=== PATIENT | male | born 1980 | race Caucasian/White ===

== ENCOUNTER 2018-03-14 12:07 | Emergency (ER) | payer SELFPAY ==
[2018-03-14 12:15] VITALS: BP 127/91; PULSE 100; TEMP 98.4; BMI 24.7
[2018-03-14] MEDS ORDERED: ONDANSETRON 4 MG/2 ML VIAL IVPUSH ONE (13:07)
[2018-03-14] MEDS ORDERED: SODIUM CHLORIDE 1,000 ML IV STA ×2 (13:07→15:21)
[2018-03-14] MEDS ORDERED: PANTOPRAZOLE SODIUM 40 MG in SODIUM CHLORIDE 100 ML IVPB ONE (13:07)
[2018-03-14] MEDS ORDERED: ONDANSETRON 4 MG/2 ML VIAL ONE (13:33)
--- NOTE | 2018-03-14 13:36 | PDOC ---
*Physical Exam - Vital Signs Last Vital Signs Temp Pulse Resp BP Pulse Ox 98.4 F 100 H 20 127/91 99 03/14/18 12:13 03/14/18 12:13 03/14/18 12:13 03/14/18 12:13 03/14/18 12:13 ED Treatment Course - LABORATORY CBC & Chemistry Diagram: 03/14/18 14:30 03/14/18 14:30 Medical Decision Making - Medical Decision Making 03/14/18 13:36 Mr Alves is a 37 yo M p/w epigastric cramping x 4 days associated with n/v x 5 days. Pt denies urinary complaints, fever, chills, weakness, diarrhea, vomiting blood , cough, chest pain, or headache. Pt seen by Midlevel Provider under my direct supervision Pt interviewed and examined Ancillary studies reviewed Laboratory Tests 03/14/18 03/14/18 03/14/18 14:30 14:30 14:30 WBC 5.4 Hgb 16.3 Hct 48.6 Plt Count 207 BUN 17 Creatinine 0.8 Acetone, Qual Negative I agree with plan as outlined by Midlevel Provider *DC/Admit/Observation/Transfer Diagnosis at time of Disposition: Nausea and vomiting, EtOH dependence - Discharge Dispostion Disposition: HOME Condition at time of disposition: Improved - Referrals Referrals: Walter Doherty MD [Staff Physician] - - Patient Instructions Printed Discharge Instructions: Diabetes, General (Alternative Therapy), DI for Alcohol Abuse Additional Instructions: Please avoid alcohol. Take diabetic medication. Eat small frequent meals and follow up referred physician Print Language: LUXEMBOURGISH - Post Discharge Activity
--- NOTE | 2018-03-14 14:36 | PDOC ---
History of Present Illness - General Chief Complaint: Pain Stated Complaint: ABD PAIN Time Seen by Provider: 03/14/18 12:32 History Source: Patient Exam Limitations: No Limitations - History of Present Illness Travel History: No Initial Comments: 03/14/18 12:31 37 y/o male presents to the ED with epigastric cramping x 4 days associated with n/v x 5 days. pt went to [facility] 2 days ago and was told to stop drinking alcohol and to start his glucophage again. Pt states had no imaging done and was prescribed glucophage which he took yesterday but not today secondary to the n/v. Pt denies urinary complaints, fever, chills, weakness, diarrhea, vomiting blood, cough, chest pain, or headache. Timing/Duration: reports: intermittent Quality: reports: mild, cramping Abdominal Pain Onset Location: reports: epigastric Pain Radiation: reports: no radiation Activities at Onset: reports: none Aggravating Factors: improves with: None Alleviating Factors: improves with: None Past History - Travel Traveled outside of the country in the last 30 days: No - Past Medical History Allergies/Adverse Reactions: Allergies Allergy/AdvReac Type Severity Reaction Status Date / Time No Known Allergies Allergy Verified 03/14/18 12:15 Diabetes: Yes - Suicide/Smoking/Psychosocial Hx Smoking History: Never smoked Information on smoking cessation initiated: No Drug/Substance Use Hx: Yes Substance Use Type: Alcohol Hx Substance Use Treatment: No Patient Lives Alone: No Lives with/in: spouse/SO Review of Systems - Review of Systems Able to Perform ROS?: Yes Constitutional: No: Symptoms Reported HEENTM: No: Symptoms Reported Respiratory: No: Symptoms reported Cardiac (ROS): No: Symptoms Reported ABD/GI: Yes: Nausea, Vomiting, Abdominal cramping. No: Constipated, Diarrhea, Poor Appetite, Poor Fluid Intake Musculoskeletal: No: Back Pain Integumentary: No: Symptoms Reported Neurological: No: Symptoms reported Endocrine: No: Symptoms Reported Hematologic/Lymphatic: No: Symptoms Reported *Physical Exam - Vital Signs Last Vital Signs Temp Pulse Resp BP Pulse Ox 98.4 F 100 H 20 127/91 99 03/14/18 12:13 03/14/18 12:13 03/14/18 12:13 03/14/18 12:13 03/14/18 12:13 - Physical Exam General Appearance: Yes: Nourished, Appropriately Dressed. No: Apparent Distress HEENT: positive: EOMI, REJI, TMs Normal, Pharynx Normal. negative: Pale Conjunctivae Neck: positive: Supple Respiratory/Chest: positive: Lungs Clear, Normal Breath Sounds. negative: Respiratory Distress, Accessory Muscle Use Cardiovascular: positive: Regular Rhythm, Regular Rate. negative: Murmur Gastrointestinal/Abdominal: positive: Soft, Tenderness (epigastric tenderness) Musculoskeletal: negative: CVA Tenderness Extremity: positive: Normal Capillary Refill. negative: Pedal Edema Integumentary: positive: Normal Color, Warm, Moist Neurologic: positive: Normal Mood/Affect, Motor Strength 5/5 (ambulatory) Moderate Sedation - Procedure Monitoring Vital Signs: Procedure Monitoring Vital Signs Temperature 98.4 F 03/14/18 12:13 Pulse Rate 100 H 03/14/18 12:13 Respiratory Rate 20 03/14/18 12:13 Blood Pressure 127/91 03/14/18 12:13 O2 Sat by Pulse Oximetry (%) 99 03/14/18 12:13 ED Treatment Course - LABORATORY CBC & Chemistry Diagram: 03/14/18 14:30 03/14/18 14:30 Medical Decision Making - Medical Decision Making 03/14/18 13:38 CC: n/v, epigastric pain x 4 days, off diabetic medication x 6 months due to no money for medication, took 3 tabs since it was prescribed 2 days ago, pt states drinks 4-5 beers daily. Exam: tachy, epigastric tenderness Plan: labs, urine, acetone, ivf, zofran, protonix, 03/14/18 16:32 Laboratory Tests 03/14/18 03/14/18 03/14/18 14:30 14:30 14:30 WBC 5.4 Hgb 16.3 Hct 48.6 MCV 98.2 H Neutrophils % 46.9 Lymphocytes % 43.7 H Sodium 135 L Potassium 3.7 Chloride 100 Carbon Dioxide 26 Anion Gap 9 BUN 17 Creatinine 0.8 Creat Clearance w eGFR > 60 Random Glucose 217 H Lactic Acid Calcium 9.1 Magnesium 2.3 Total Bilirubin 1.0 AST 108 H ALT 170 H Alkaline Phosphatase 111 Total Protein 8.7 H Albumin 4.3 Lipase Urine Protein 1+ H Urine Glucose (UA) 1+ H Urine Ketones 2+ H Urine Blood Negative Ur Leukocyte Esterase Negative Urine WBC (Auto) 4 Urine RBC (Auto) <1 Acetone, Qual 03/14/18 03/14/18 03/14/18 14:30 14:30 15:46 WBC Hgb Hct MCV Neutrophils % Lymphocytes % Sodium Potassium Chloride Carbon Dioxide Anion Gap BUN Creatinine Creat Clearance w eGFR Random Glucose Lactic Acid 1.0 Calcium Magnesium Total Bilirubin AST ALT Alkaline Phosphatase Total Protein Albumin Lipase 200 Urine Protein Urine Glucose (UA) Urine Ketones Urine Blood Ur Leukocyte Esterase Urine WBC (Auto) Urine RBC (Auto) Acetone, Qual Negative Pt given 2nd liter of fluid. pt states feeling much better and able to tolerate crackers and water *DC/Admit/Observation/Transfer Diagnosis at time of Disposition: Nausea and vomiting, EtOH dependence - Discharge Dispostion Disposition: HOME Condition at time of disposition: Improved - Referrals Referrals: Walter Doherty MD [Staff Physician] - - Patient Instructions Printed Discharge Instructions: Diabetes, General (Alternative Therapy), DI for Alcohol Abuse Additional Instructions: Please avoid alcohol. Take diabetic medication. Eat small frequent meals and follow up referred physician Print Language: MACEDONIAN - Post Discharge Activity
[2018-03-14 14:48] LABS: URINE APPEARANCE CLEAR; URINE BILIRUBIN NEGATIVE (<2.0 mg/dL); URINE COLOR AMBER; URINE GLUCOSE (UA) 1+ (NEGATIVE); URINE KETONE 2+ (NEGATIVE); URINE LEUK ESTERASE NEGATIVE (NEGATIVE); URINE NITRITE NEGATIVE (NEGATIVE); URINE PROTEIN 1+ (NEGATIVE); URINE UROBILINOGEN 4.0 E.U/dl mg/dL (0.2-1.0)
[2018-03-14 15:07] LABS: ALBUMIN 4.3 g/dl (3.4-5.0); ALK PHOS 111 U/L (45-117); ANION GAP 9 MMOL/L (8-16); BLOOD UREA NITROGEN 17 mg/dL (7-18); CALCIUM 9.1 mg/dL (8.5-10.1); CHLORIDE 100 mmol/L (98-107); CO2 26 mmol/L (21-32); CREATININE 0.8 mg/dL (0.55-1.3); GLUCOSE,RANDOM 217 mg/dL (74-106); MAGNESIUM 2.3 mg/dL (1.8-2.4); POTASSIUM 3.7 mmol/L (3.5-5.1); SGOT/AST 108 U/L (15-37); SGPT/ALT 170 U/L (13-61); SODIUM 135 mmol/L (136-145); TOT PROT 8.7 g/dl (6.4-8.2)
[2018-03-14 15:44] LABS: BASO % 0.7 % (0-2.0); EOS % 0.3 % (0-4.5); HEMATOCRIT 48.6 % (35.4-49); HEMOGLOBIN 16.3 GM/dL (11.7-16.9); LYMPH % 43.7 % (8-40); MCH 32.9 pg (25.7-33.7); MCHC 33.6 g/dl (32.0-35.9); MEAN CELL VOLUME 98.2 fl (80-96); MEAN PLT VOLUME 8.3 fl (7.5-11.1); MONO % 8.4 % (3.8-10.2); NEUT % 46.9 % (42.8-82.8); PLATELET COUNT 207 K/MM3 (134-434); RBC 4.95 M/mm3 (4.00-5.60); RDW 13.1 % (11.9-15.9); WHITE BLOOD COUNT 5.4 K/mm3 (4.0-10.0)
[2018-03-14 16:28] LABS: URINE MUCUS MANY
== END 2018-03-14 18:00 | disposition home or self-care (01) ==
LOC: JER 12:07
PROC: 3E0337Z Introduction of Electrolytic and Water Balance Substance into Peripheral Vein, Percutaneous Approach (ICD-10-PCS; principal; 2018-03-14)
PROC: 3E0337Z Introduction of Electrolytic and Water Balance Substance into Peripheral Vein, Percutaneous Approach (ICD-10-PCS; 2018-03-14)
PROC: 3E033GC Introduction of Other Therapeutic Substance into Peripheral Vein, Percutaneous Approach (ICD-10-PCS; 2018-03-14)
PROC: 3E033GC Introduction of Other Therapeutic Substance into Peripheral Vein, Percutaneous Approach (ICD-10-PCS; 2018-03-14)
DX: R11.2 Nausea with vomiting, unspecified (principal); F10.20 Alcohol dependence, uncomplicated
CPT/HCPCS: 36415; 80053; 81003; 81015; 82009; 83605; 83690; 83735; 85025; 87086; 99282-25; J7030

== ENCOUNTER 2018-06-28 19:12 | Emergency (ER) | payer SELFPAY ==
[2018-06-28 19:36] VITALS: BP 120/77; TEMP 99; BMI 24.7
[2018-06-28] MEDS ORDERED: FAMOTIDINE 20 MG/50 ML IVPB 20 MG/50 ML MG IVPB ONE ×2 (19:53→20:02)
[2018-06-28] MEDS ORDERED: SODIUM CHLORIDE 1,000 ML IV STA ×2 (19:53→20:45)
[2018-06-28] MEDS ORDERED: ONDANSETRON 4 MG/2 ML VIAL ONE (20:02)
[2018-06-28] MEDS ORDERED: ONDANSETRON 4 MG/2 ML VIAL IVPB ONE (20:10)
--- NOTE | 2018-06-28 20:15 | PDOC ---
History of Present Illness - General Chief Complaint: Nausea/Vomiting Stated Complaint: ABD PAIN Time Seen by Provider: 06/28/18 19:50 History Source: Patient Exam Limitations: No Limitations - History of Present Illness Initial Comments: 06/28/18 20:11 Pt is a 38yo M with PMH of NIDDM presenting to ED with complaints of epigastric abdominal pain x3 days. Pt states pain feels like a cramping sensation and feels like he is hungry, does not radiate, is constant. Associated with nausea and vomiting when he tries to eat. Pain is worsened when he eats. He had similar symptoms before around 3 months ago. He denies fever, chills, hematemesis, bloody stools, tarry stools, chest pain, sob, recent travel, sick contacts. Last BM was 2 days ago. Is not able to tolerate solids but is able to tolerate liquids. PMD: PMH: see hpi PSH: none Meds: Metformin Allergies: nkda Social: occasional alcohol use Past History - Past Medical History Allergies/Adverse Reactions: Allergies Allergy/AdvReac Type Severity Reaction Status Date / Time No Known Allergies Allergy Verified 06/28/18 19:36 Home Medications: Ambulatory Orders Acetaminophen [Tylenol] 650 mg PO PRN 06/28/18 Ondansetron [Zofran Odt -] 4 mg SL BID #10 od.tablet 06/28/18 COPD: No Diabetes: Yes - Suicide/Smoking/Psychosocial Hx Smoking History: Never smoked Have you smoked in the past 12 months: No Information on smoking cessation initiated: No Hx Alcohol Use: No Drug/Substance Use Hx: No Substance Use Type: Alcohol Hx Substance Use Treatment: No Review of Systems - Review of Systems Constitutional: No: Chills, Fever, Weakness HEENTM: No: Symptoms Reported Respiratory: No: Symptoms reported Cardiac (ROS): No: Chest Pain, Lightheadedness, Palpitations ABD/GI: Yes: See HPI, Nausea, Vomiting, Abdominal cramping. No: Constipated, Diarrhea, Rectal Bleeding, Tarry Stools : No: Burning, Dysuria Musculoskeletal: No: Symptoms Reported Integumentary: No: Symptoms Reported Neurological: No: Symptoms reported *Physical Exam - Vital Signs Last Vital Signs Temp Pulse Resp BP Pulse Ox 99.0 F 103 H 16 120/77 100 06/28/18 19:34 06/28/18 19:34 06/28/18 19:34 06/28/18 19:34 06/28/18 19:34 - Physical Exam General Appearance: Yes: Nourished, Appropriately Dressed. No: Apparent Distress HEENT: positive: EOMI, REJI, Normal ENT Inspection Neck: positive: Trachea midline, Supple. negative: Lymphadenopathy (R), Lymphadenopathy (L) Respiratory/Chest: positive: Lungs Clear, Normal Breath Sounds Cardiovascular: positive: Regular Rhythm, Regular Rate, S1, S2. negative: Edema , JVD, Murmur Vascular Pulses: Carotid (R): 2+, Carotid (L): 2+, Dorsalis-Pedis (R): 2+, Doralis-Pedis (L): 2+ Gastrointestinal/Abdominal: positive: Normal Bowel Sounds, Soft, Tenderness ( slight epigastric tenderness). negative: Guarding, Rebound, Hernia, Mass Musculoskeletal: negative: CVA Tenderness Extremity: positive: Normal Capillary Refill Integumentary: positive: Normal Color, Dry, Warm Neurologic: positive: pocket stitcher II-XII NML intact, Fully Oriented, Alert, Normal Mood/ Affect, Normal Response, Motor Strength 07/27 ED Treatment Course - LABORATORY CBC & Chemistry Diagram: 06/28/18 20:07 06/28/18 20:07 Medical Decision Making - Medical Decision Making 06/28/18 20:14 Pt is a 38yo M with PMH of NIDDM presenting to ED with complaints of epigastric abdominal pain x3 days. Pt states pain feels like a cramping sensation and feels like he is hungry, does not radiate, is constant. Associated with nausea and vomiting when he tries to eat. Pain is worsened when he eats. He had similar symptoms before around 3 months ago. He denies fever, chills, hematemesis, bloody stools, tarry stools, chest pain, sob, recent travel, sick contacts. Last BM was 2 days ago. Is not able to tolerate PO. vitals: wnl PE: slight epigastric tenderness ddx includes but not limited to pancreatitis, cholecystitis, gastritis, pud, gerd, atypical acs, gastroparesis -labs, lipase -iv fluids, zofran, pepcid pt feeling better. repeat HR in the 80s. is tolerating liquids. benign abdominal exam. does not need imaging at this time. Labs wnl. gluc in 300s. pt does not have anion gap, other electrolytes wnl. Low suspicion for dka/hhs. pt stable, has pmd f/u. safe for dc home. given return precautions and discharge instructions. pt verbalized understanding *DC/Admit/Observation/Transfer Diagnosis at time of Disposition: Hyperglycemia Nausea and vomiting Qualifiers: Vomiting type: unspecified Vomiting Intractability: non-intractable Qualified Code(s): R11.2 - Nausea with vomiting, unspecified Abdominal pain Qualifiers: Abdominal location: epigastric Qualified Code(s): R10.13 - Epigastric pain - Discharge Dispostion Disposition: HOME Condition at time of disposition: Improved Decision to Admit order: No - Prescriptions Prescriptions: Ondansetron [Zofran Odt -] 4 mg SL BID #10 od.tablet - Referrals - Patient Instructions Printed Discharge Instructions: DI for Hyperglycemia -- Adult, DI for Vomiting -- Adult Additional Instructions: You were seen in the emergency room today for abdominal pain and vomiting. The blood tests were normal. This is most likely gastritis. A prescription for a nausea medicine was sent to your pharmacy. Please take as directed for nausea. Make sure to stay well hydrated. Drink lots of water and other liquids. I recommend starting with a liquid diet only. If you can tolerate that then you can move on to soft solids like toast, bananas, rice. If you tolerate that then you can start eating regular diet. Please try not to eat greasy or fried foods or drink alcohol for the next few days. Please make an appointment with your doctor next week. Come back to the emergency room if pain gets worse, you are unable to tolerate liquids, you start vomiting blood or if any new concerning symptom develops. Thank you - Post Discharge Activity
[2018-06-28 20:18] LABS: BASO % 0.8 % (0-2.0); EOS % 0.3 % (0-4.5); HEMATOCRIT 48.2 % (35.4-49); HEMOGLOBIN 16.8 GM/dL (11.7-16.9); LYMPH % 32.8 % (8-40); MCH 32.5 pg (25.7-33.7); MCHC 34.8 g/dl (32.0-35.9); MEAN CELL VOLUME 93.4 fl (80-96); MEAN PLT VOLUME 8.2 fl (7.5-11.1); MONO % 9.4 % (3.8-10.2); NEUT % 56.7 % (42.8-82.8); PLATELET COUNT 230 K/MM3 (134-434); RBC 5.16 M/mm3 (4.00-5.60); RDW 13.3 % (11.9-15.9); WHITE BLOOD COUNT 4.8 K/mm3 (4.0-10.0)
[2018-06-28 20:46] LABS: ALBUMIN 4.2 g/dl (3.4-5.0); ALK PHOS 82 U/L (45-117); ANION GAP 10 MMOL/L (8-16); BILIRUBIN,TOTAL 0.8 mg/dL (0.2-1); BLOOD UREA NITROGEN 15 mg/dL (7-18); CALCIUM 9.4 mg/dL (8.5-10.1); CHLORIDE 99 mmol/L (98-107); CO2 26 mmol/L (21-32); CREATININE 0.9 mg/dL (0.55-1.3); LIPASE 193 U/L (73-393); SGOT/AST 27 U/L (15-37); SGPT/ALT 46 U/L (13-61); SODIUM 135 mmol/L (136-145); TOT PROT 8.6 g/dl (6.4-8.2)
[2018-06-28 21:15] LABS: GLUCOSE,RANDOM 337 mg/dL (74-106)
--- NOTE | 2018-06-28 21:25 | PDOC ---
Attending Attestation - HPI HPI: 06/28/18 21:26 The patient is a 38-year-old male with a past medical history significant for NIDDM presents to the emergency department with abdominal pain. The patient presents with 3 days of epigastric pain, thats cramping in quality like hes hungry. The patient reports the pain is constant, nonradiating. The patient reports associated symptoms of nausea and NBNB vomiting, states hes unable to keep solids down, is able to tolerate liquids. Denies fever, chills, chest pain , shortness of breath, bloody stools, hematemesis, sick contact. Denies recent abdominal surgery. Allergies: NKDA PCP: @ [email or web address] - Physicial Exam PE: 06/28/18 21:28 Vitals: Triage Vital signs reviewed General Appearance: no acute distress, well nourished well developed, Cardiac: Regular rate and rhythm, no murmurs, no rubs, no gallops, Lungs: Clear to auscultation bilateral, good air movement bilaterally, Abdomen: +mild tenderness to palpation of the epigastric region. Soft, nondistended, Extremities: Full range of motion to all extremities, no cyanosis, clubbing, or edema Skin: Warm and dry, no rashes or lesions, no petechiae. - Medical Decision Making 06/28/18 21:27 Documentation prepared by Pebbles Petty, acting as biomedical manager for Roberto Walters MD. 06/28/18 21:27 Plan EKG: LAbs CMP, Lipase, Trop, CBC, glucose Medication. PO challenge then D/C. <Pebbles Petty - Last Filed: 06/28/18 21:29> - Resident Resident Name: Chinyere Malone - ED Attending Attestation I have performed the following: I have examined & evaluated the patient, The case was reviewed & discussed with the resident, I agree w/resident's findings & plan, Exceptions are as noted - Medical Decision Making 38 years old with several day history of nausea vomiting diarrhea history of non -insulin-dependent diabetes Unable to take metformin secondary to vomiting In the emergency department patient treated with GI cocktail IV fluids Patient feels much better now tolerating fluids we'll treat with short course of Zofran patient will follow up with his doctor on Saturday history examination most consistent with viral GI illness No abdominal pain on repeat exam no evidence of DKA Findings, the need for follow-up and strict return instructions discussed with patient. <Roberto Walters - Last Filed: 06/29/18 01:17>
[2018-06-28 22:10] VITALS: PULSE 89
== END 2018-06-28 22:10 | disposition home or self-care (01) ==
LOC: JER 19:12
PROC: 3E033GC Introduction of Other Therapeutic Substance into Peripheral Vein, Percutaneous Approach (ICD-10-PCS; principal; 2018-06-28)
PROC: 3E033GC Introduction of Other Therapeutic Substance into Peripheral Vein, Percutaneous Approach (ICD-10-PCS; 2018-06-28)
PROC: 3E0337Z Introduction of Electrolytic and Water Balance Substance into Peripheral Vein, Percutaneous Approach (ICD-10-PCS; 2018-06-28)
DX: E11.65 Type 2 diabetes mellitus with hyperglycemia (principal); Z79.84 Long term (current) use of oral hypoglycemic drugs; R11.2 Nausea with vomiting, unspecified
CPT/HCPCS: 36415; 80053; 83690; 84484; 85025; 99282-25; J7030

== ENCOUNTER 2018-09-22 10:51 | Emergency (ER) | payer SELFPAY ==
[2018-09-22 11:07] VITALS: PULSE 87; TEMP 98.7; BMI 24.5
--- NOTE | 2018-09-22 12:28 | PDOC ---
History of Present Illness <KartikJayson - Last Filed: 09/22/18 13:57> - History of Present Illness Initial Comments: The pt is a 38M w/ a history of NIDDM who presents for evaluation of 3 days of epigastric abdominal pain that is intermittent, cramping, radiates to RUQ/LUQ, associated w/ NBNB emesis. Denies fevers/chills, chest pain, trouble breathing, dysuria, hematuria, diarrhea, blood in stool Out of Metformin for 2 months and has been unable to see his PCP for last 6 months. 09/22/18 13:05 <Gabriel Schwartz - Last Filed: 09/23/18 20:52> - General Chief Complaint: Nausea/Vomiting Stated Complaint: ABD. PAIN/ VOMITING Past History <KartikJayson - Last Filed: 09/22/18 13:57> - Past Medical History COPD: No Diabetes: Yes - Suicide/Smoking/Psychosocial Hx Smoking History: Never smoked Have you smoked in the past 12 months: No Hx Alcohol Use: Yes Drug/Substance Use Hx: No Substance Use Type: Alcohol Hx Substance Use Treatment: No <Gabriel Schwartz - Last Filed: 09/23/18 20:52> - Past Medical History Allergies/Adverse Reactions: Allergies Allergy/AdvReac Type Severity Reaction Status Date / Time No Known Allergies Allergy Verified 09/22/18 11:06 Home Medications: Ambulatory Orders Famotidine [Pepcid -] 20 mg PO BID PRN #14 tablet MDD 2 tab 09/22/18 Metformin HCl [Glucophage] 500 mg PO BID 09/22/18 metFORMIN HCL [Glucophage -] 500 mg PO DAILY #30 tablet 09/22/18 Review of Systems - Review of Systems Able to Perform ROS?: Yes Comments:: GENERAL/CONSTITUTIONAL: No fever or chills. No weakness HEAD, EYES, EARS, NOSE AND THROAT: No change in vision. No ear pain or discharge. No sore throat CARDIOVASCULAR: No chest pain or shortness of breath RESPIRATORY: Denies cough, hemoptysis GASTROINTESTINAL: No diarrhea or constipation GENITOURINARY: No dysuria, frequency, or change in urination MUSCULOSKELETAL: No joint or muscle swelling or pain. No neck or back pain SKIN: No rash NEUROLOGIC: No headache, vertigo, loss of consciousness, or change in strength/ sensation ENDOCRINE: No increased thirst. No abnormal weight change HEMATOLOGIC/LYMPHATIC: No anemia, easy bleeding, or history of blood clots ALLERGIC/IMMUNOLOGIC: No hives or skin allergy 09/22/18 12:27 Is the patient limited Surinamese proficient: No <Gabriel Schwartz - Last Filed: 09/23/18 20:52> *Physical Exam - Vital Signs Last Vital Signs Temp Pulse Resp BP Pulse Ox 98.7 F 87 16 118/82 96 09/22/18 11:03 09/22/18 11:03 09/22/18 11:03 09/22/18 11:03 09/22/18 11:03 <Jayson Verdugo - Last Filed: 09/22/18 13:57> - Vital Signs Last Vital Signs Temp Pulse Resp BP Pulse Ox 98.7 F 87 16 118/82 96 09/22/18 11:03 09/22/18 11:03 09/22/18 11:03 09/22/18 11:03 09/22/18 11:03 - Physical Exam Comments: GENERAL: Awake, alert, and oriented to person/place/time, in no acute distress HEAD: No signs of trauma, normocephalic, atraumatic EYES: PERRLA, EOMI, sclera anicteric, conjunctiva clear ENT: Hearing grossly normal, nares patent, oropharynx clear without exudates. Moist mucosa LUNGS: No distress, speaks in full sentences, clear to auscultation bilaterally HEART: Regular rate and rhythm, normal S1 and S2, no murmurs appreciated, peripheral pulses normal and equal bilaterally ABDOMEN: Soft, epigastric TTP, normoactive bowel sounds. No guarding, no rebound. No masses EXTREMITIES: Normal inspection, Normal range of motion, no edema. No clubbing or cyanosis NEUROLOGICAL: Cranial nerves II through XII grossly intact. Normal speech, normal gait, no focal sensorimotor deficits SKIN: Warm, Dry 09/22/18 12:28 <Gabriel Schwartz - Last Filed: 09/23/18 20:52> ED Treatment Course - LABORATORY CBC & Chemistry Diagram: 09/22/18 13:30 09/22/18 13:30 - ADDITIONAL ORDERS Additional order review: Laboratory Results 09/22/18 13:45 POC Glucometer 172 09/22/18 09/22/18 13:45 13:30 RBC 4.76 MCV 92.6 MCHC 34.8 RDW 13.0 MPV 7.4 L Neutrophils % 71.4 D Lymphocytes % 20.0 D Monocytes % 8.0 Eosinophils % 0.3 Basophils % 0.3 POC Glucometer 172 - Medications Given in the ED: ED Medications Discontinued Medications Generic Name Dose Route Start Last Admin Trade Name Javier PRN Reason Stop Dose Admin Al Hydroxide/Mg Hydroxide 30 ml 09/22/18 13:04 09/22/18 13:36 Mylanta Oral Suspension - PO 09/22/18 13:05 30 ml ONCE ONE Administration Famotidine/Sodium Chloride 20 mg in 50 mls @ 100 mls/hr 09/22/18 13:04 13:36 Pepcid 20 Mg Premixed Ivpb - IVPB 09/22/18 13:33 100 mls/hr ONCE ONE Administration Lactated Ringer's 1,000 ml 09/22/18 13:04 09/22/18 13:36 Lactated Ringers Solution IV 09/22/18 13:05 1,000 ml ONCE ONE Administration Ondansetron HCl 4 mg 09/22/18 13:04 09/22/18 13:36 Zofran Injection IVPUSH 09/22/18 13:05 4 mg ONCE ONE Administration <Jayson Verdugo - Last Filed: 09/22/18 13:57> - LABORATORY CBC & Chemistry Diagram: 09/22/18 13:30 09/22/18 13:30 <Gabriel Schwartz - Last Filed: 09/23/18 20:52> Medical Decision Making - Medical Decision Making The pt is a 38M w/ a history of DM who was seen before for epigastric pain who presents for evaluation of epigastric pain w/ associated vomiting ED Course Labs sent GI cocktail No leukocytosis No anemia Lytes unremarkable Pt feels improved s/p meds Tolerating PO well Rx for Metformin as pt out of meds Rx for Zantac for symptomatic relief Plan for D/C w/ PCP and GI f/u Discharge instructions and return precautions given Pt in agreement and verbalized understanding Dispo: home <Gabriel Schwartz - Last Filed: 09/23/18 20:52> *DC/Admit/Observation/Transfer <Jayson Verdugo - Last Filed: 09/22/18 13:57> - Discharge Dispostion Decision to Admit order: No <Gabriel Schwartz - Last Filed: 09/23/18 20:52> Diagnosis at time of Disposition: Nausea and vomiting Qualifiers: Vomiting type: unspecified Vomiting Intractability: non-intractable Qualified Code(s): R11.2 - Nausea with vomiting, unspecified Diabetes Qualifiers: Diabetes mellitus type: type 2 Diabetes mellitus remote computer terminal operator insulin use: without penitentiary use Diabetes mellitus complication status: without complication Qualified Code(s): E11.9 - Type 2 diabetes mellitus without complications Abdominal pain Qualifiers: Abdominal location: epigastric Qualified Code(s): R10.13 - Epigastric pain - Discharge Dispostion Disposition: HOME Condition at time of disposition: Improved - Prescriptions Prescriptions: Famotidine [Pepcid -] 20 mg PO BID PRN #14 tablet MDD 2 tab PRN Reason: Pain metFORMIN HCL [Glucophage -] 500 mg PO DAILY #30 tablet - Referrals Referrals: Ann-Marie Soler [Primary Care Provider] - Manuel Uribe MD [Staff Physician] - Alessandro Houston MD [Staff Physician] - - Patient Instructions Printed Discharge Instructions: DI for Vomiting -- Adult Additional Instructions: You were seen in the Emergency Department for evaluation of abdominal pain with nausea and vomiting. Your labs were unremarkable. Review the handout provided at discharge. Please return to the emergency department with any new or worsening symptoms or concerns. Please follow up with your primary care physician and gastroenterology within 72 hours. Can take Pepcid twice a day as needed for symptom relief. - Post Discharge Activity
[2018-09-22] MEDS ORDERED: FAMOTIDINE 20 MG/50 ML IVPB 20 MG/50 ML MG IVPB ONE ×2 (13:04→13:29)
[2018-09-22] MEDS ORDERED: MAG HYDROX/AL HYDROX/SIMETH 30 ML UNIT-DOSE CUP PO ONE (13:04)
[2018-09-22] MEDS ORDERED: LACTATED RINGERS SOLUTION 1000 ML INFUS.BAG IV ONE (13:04)
[2018-09-22] MEDS ORDERED: ONDANSETRON 4 MG/2 ML VIAL IVPUSH ONE (13:04)
[2018-09-22] MEDS ORDERED: ONDANSETRON 4 MG/2 ML VIAL ONE (13:28)
[2018-09-22] MEDS ORDERED: MAG HYDROX/AL HYDROX/SIMETH 30 ML UNIT-DOSE CUP ONE (13:28)
[2018-09-22 13:41] LABS: BASO % 0.3 % (0-2.0); EOS % 0.3 % (0-4.5); HEMATOCRIT 44.1 % (35.4-49); HEMOGLOBIN 15.3 GM/dL (11.7-16.9); MCH 32.2 pg (25.7-33.7); MCHC 34.8 g/dl (32.0-35.9); MEAN CELL VOLUME 92.6 fl (80-96); MEAN PLT VOLUME 7.4 fl (7.5-11.1); NEUT % 71.4 % (42.8-82.8); PLATELET COUNT 303 K/MM3 (134-434); RBC 4.76 M/mm3 (4.00-5.60); WHITE BLOOD COUNT 9.5 K/mm3 (4.0-10.0)
[2018-09-22 14:00] LABS: EPI CELLS 0.5 /HPF (0-5/HPF); HYALINE CASTS 3 /lpf (0-8); PH,URINE 5.5 (5.0-8.0); URINE APPEARANCE CLEAR; URINE BILIRUBIN 1+ (NEGATIVE); URINE COLOR DK YELLOW; URINE GLUCOSE (UA) NEGATIVE (NEGATIVE); URINE KETONE TRACE (NEGATIVE); URINE LEUK ESTERASE TRACE (NEGATIVE); URINE NITRITE NEGATIVE (NEGATIVE); URINE PROTEIN TRACE (NEGATIVE); URINE RBC 1 /hpf (0-4); URINE WBC 2 /hpf (0-5)
[2018-09-22 14:16] LABS: ALBUMIN 4.2 g/dl (3.4-5.0); BILIRUBIN,TOTAL 0.7 mg/dL (0.2-1); CALCIUM 9.9 mg/dL (8.5-10.1); CREATININE 0.8 mg/dL (0.55-1.3); POTASSIUM 3.9 mmol/L (3.5-5.1); TOT PROT 8.6 g/dl (6.4-8.2)
--- NOTE | 2018-09-22 14:48 | PDOC ---
Documentation entered by Aminata Maldonado SCRIBE, acting as scribe for Claire Hubbard MD. Claire Hubbard MD: This documentation has been prepared by the Erica salazar Adrianna, SCRIBE, under my direction and personally reviewed by me in its entirety. I confirm that the documentation accurately reflects all work, treatment, procedures, and medical decision making performed by me. Attending Attestation - Resident Resident Name: Gabriel Schwartz - ED Attending Attestation I have performed the following: I have examined & evaluated the patient, The case was reviewed & discussed with the resident, I agree w/resident's findings & plan, Exceptions are as noted - HPI HPI: The patient is a 38 year old male, with a significant PMH of DM and HTN, who presents to the ED for evaluation of abdominal pain for 3 days. Patient notes the pain is most prominent over the epigastric region, radiates to the RUQ and LUQ, and is intermittent and cramping in nature. He endorses associated nausea and NBNB vomit. Patient reports he has not taken Metformin in the past 2 months. Denies fever, chills, chest pain, SOB, or abdominal pain. Denies diarrhea, constipation, or blood in stool Allergies: NKA, NKDA Surgical History: None reported Social History: Denies tobacco, EtOH, or illicit drug use. PCP: Referred to Mani Carrera 09/22/18 13:19 - Physicial Exam PE: GENERAL: Awake, alert, and fully oriented, in no acute distress HEAD: No signs of trauma EYES: PERRLA, EOMI, sclera anicteric, conjunctiva clear ENT: Auricles normal inspection, hearing grossly normal, nares patent, oropharynx clear without exudates. Dry mucosa NECK: Normal ROM, supple, no lymphadenopathy, JVD, or masses LUNGS: Breath sounds equal, clear to auscultation bilaterally. No wheezes, and no crackles HEART: Regular rate and rhythm, normal S1 and S2, no murmurs, rubs or gallops ABDOMEN: Soft, nontender, normoactive bowel sounds. No guarding, no rebound. No masses EXTREMITIES: Normal range of motion, no edema. No clubbing or cyanosis. No cords, erythema, or tenderness NEUROLOGICAL: Cranial nerves II through XII grossly intact. Normal speech, normal gait. Motor and sensation intact SKIN: Warm, Dry, normal turgor, no rashes or lesions noted. - Medical Decision Making Pt with no signs of acute abdomen. Will treat with GI cocktail and reassess. Will recommend GI f/u, as he has had prior similar ED visits for the same. Will set him up with clinic f/u, as he has been having difficulty following up for his diabetes as well.
[2018-09-22 15:42] VITALS: BP 122/87
== END 2018-09-22 15:42 | disposition home or self-care (01) ==
LOC: JER 10:51
PROC: 3E033GC Introduction of Other Therapeutic Substance into Peripheral Vein, Percutaneous Approach (ICD-10-PCS; principal; 2018-09-22)
PROC: 3E033GC Introduction of Other Therapeutic Substance into Peripheral Vein, Percutaneous Approach (ICD-10-PCS; 2018-09-22)
DX: R10.13 Epigastric pain (principal); R11.10 Vomiting, unspecified; I10 Essential (primary) hypertension; E11.9 Type 2 diabetes mellitus without complications; Z79.84 Long term (current) use of oral hypoglycemic drugs
CPT/HCPCS: 36415; 80053; 81003; 82962; 83690; 85025; 99282-25

== ENCOUNTER 2018-11-03 06:54 | Emergency (ER) | payer SELFPAY | END 2018-11-03 09:18 | disposition home or self-care (01) | LOC: JER 06:54 ==

== ENCOUNTER 2019-05-22 12:01 | Emergency (ER) | payer OTHER ==
[2019-05-22 12:17] VITALS: BP 118/79; PULSE 81; TEMP 98.1; BMI 26.0
[2019-05-22] MEDS ORDERED: SODIUM CHLORIDE 1,000 ML IV STA (13:02)
[2019-05-22] MEDS ORDERED: ACETAMINOPHEN 1000 MG/100 ML VIAL (NON FORMULARY) IVPB ONE (13:02)
[2019-05-22] MEDS ORDERED: ONDANSETRON 4 MG/2 ML VIAL IVPUSH ONE (13:02)
--- NOTE | 2019-05-22 13:03 | PDOC ---
History of Present Illness - General History Source: Patient Exam Limitations: No Limitations <Nika Salazar - Last Filed: 05/22/19 16:22> <Roberto Walters - Last Filed: 05/22/19 17:12> - General Chief Complaint: Pain, Acute Stated Complaint: STOMACH PAIN Time Seen by Provider: 05/22/19 12:51 Past History - Travel Traveled outside of the country in the last 30 days: No Close contact w/someone who was outside of country & ill: No - Past Medical History COPD: No CHF: No Diabetes: Yes HTN: No Hypercholesterolemia: No - Surgical History Abdominal Surgery: No Appendectomy: No Cholecystectomy: No GI Surgery: No - Psycho Social/Smoking Cessation Hx Smoking History: Never smoked Have you smoked in the past 12 months: No Hx Alcohol Use: Yes Drug/Substance Use Hx: No Substance Use Type: Alcohol Hx Substance Use Treatment: No <Nika Salazar - Last Filed: 05/22/19 16:22> <Roberto Walters - Last Filed: 05/22/19 17:12> - Past Medical History Allergies/Adverse Reactions: Allergies Allergy/AdvReac Type Severity Reaction Status Date / Time No Known Allergies Allergy Verified 05/22/19 12:17 Home Medications: Ambulatory Orders NK [No Known Home Medication] 05/22/19 Review of Systems - Review of Systems Able to Perform ROS?: Yes Comments:: 05/22/19 13:01 CONSTITUTIONAL: Absent: fever, chills, diaphoresis, generalized weakness, malaise, loss of appetite HEENT: Absent: rhinorrhea, nasal congestion, throat pain, throat swelling, difficulty swallowing, mouth swelling, ear pain, eye pain, visual Changes CARDIOVASCULAR: Absent: chest pain, loss of consciousness, palpitations, irregular heart rate, peripheral edema RESPIRATORY: Absent: cough, shortness of breath, dyspnea with exertion, orthopnea, wheezing, stridor, hemoptysis GASTROINTESTINAL: Present: Abdominal pain, nausea and vomiting. Absent: abdominal pain, abdominal distension, nausea, vomiting, diarrhea, constipation, melena, hematochezia GENITOURINARY: Absent: dysuria, frequency, urgency, hesitancy, hematuria, flank pain, genital pain MUSCULOSKELETAL: Absent: myalgia, arthralgia, joint swelling SKIN: Absent: rash, itching, pallor HEMATOLOGIC/IMMUNOLOGIC: Absent: easy bleeding, easy bruising, lymphadenopathy, frequent infections ENDOCRINE: Absent: unexplained weight gain, unexplained weight loss, heat intolerance, cold intolerance NEUROLOGIC: Absent: headache, focal weakness or paresthesias, dizziness, unsteady gait, seizure, mental status changes, bladder or bowel incontinence PSYCHIATRIC: Absent: anxiety, depression, suicidal or homicidal ideation, hallucinations. Is the patient limited Latvian proficient: No <Nika Salazar - Last Filed: 05/22/19 16:22> *Physical Exam - Vital Signs Last Vital Signs Temp Pulse Resp BP Pulse Ox 98.1 F 81 16 118/79 100 05/22/19 12:15 05/22/19 12:15 05/22/19 12:15 05/22/19 12:15 05/22/19 12:15 - Physical Exam 05/22/19 15:40 GENERAL: Well developed, well nourished. Awake and alert. No acute distress. HEENT: Normocephalic, atraumatic. PERRLA, EOMI. No conjunctival pallor. Sclera are non- icteric. Moist mucous membranes. NECK: Supple. Full ROM. CARDIOVASCULAR: Regular rate and rhythm. No murmurs, rubs, or gallops. Distal pulses are 2+ and symmetric. PULMONARY: No evidence of respiratory distress. Lungs clear to auscultation bilaterally. No wheezing, rales or rhonchi. ABDOMINAL: Tenderness to palpation of the epigastric/right upper quadrant. Discomfort with deep palpation of the right upper quadrant soft. Non-tender. Non- distended. No rebound or guarding. No organomegaly. Normoactive bowel sounds. MUSCULOSKELETAL Normal range of motion at all joints. No bony deformities or tenderness. No CVA tenderness. EXTREMITIES: No cyanosis. No clubbing. No edema. No calf tenderness. SKIN: Warm and dry. Normal capillary refill. No rashes. No jaundice. NEUROLOGICAL: Alert, awake, appropriate. Cranial nerves 2-12 intact. No deficits to light touch and temperature in face, upper extremities and lower extremities. No motor deficits in the in face, upper extremities and lower extremities. Normoreflexic in the upper and lower extremities. Normal speech. Toes are down- going bilaterally. Gait is normal without ataxia. PSYCHIATRIC: Cooperative. Good eye contact. Appropriate mood and affect. <Sciliano,Nika - Last Filed: 05/22/19 16:22> - Vital Signs Last Vital Signs Temp Pulse Resp BP Pulse Ox 98.1 F 81 16 118/79 100 05/22/19 12:15 05/22/19 12:15 05/22/19 12:15 05/22/19 12:15 05/22/19 12:15 <Roberto Walters - Last Filed: 05/22/19 17:12> ED Treatment Course - LABORATORY CBC & Chemistry Diagram: 05/22/19 16:50 05/22/19 16:50 - Medications Given in the ED: ED Medications Discontinued Medications Generic Name Dose Route Start Last Admin Trade Name Javier PRN Reason Stop Dose Admin Acetaminophen 1,000 mg 05/22/19 13:02 05/22/19 16:51 Ofirmev Injection - IVPB 05/22/19 13:03 1,000 mg ONCE ONE Administration Sodium Chloride 1,000 mls @ 1,000 mls/hr 05/22/19 13:02 05/22/19 16:50 Normal Saline - IV 05/22/19 14:01 1,000 mls/hr ASDIR STA Administration Ondansetron HCl 4 mg 05/22/19 13:02 05/22/19 16:51 Zofran Injection IVPUSH 05/22/19 13:03 4 mg ONCE ONE Administration <Roberto Walters - Last Filed: 05/22/19 17:12> Medical Decision Making - Medical Decision Making 05/22/19 15:40 The patient is a 39-year-old male with no past medical history who presents to the ER with 2 days of nausea and vomiting. He states he also has abdominal pain to the epigastric region and right upper quadrant. The vomiting has been nonbilious and nonbloody. He has been unable to keep anything down. 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 Denies diarrhea, sore throat, fever and chills. A/P: Gastroenteritis On exam patient with tenderness palpation of the epigastric and right upper quadrant. Likely a viral syndrome, however differential diagnosis includes but is not limited to cholecystitis, pancreatitis, biliary colic. Basic labs, urine, ultrasound of the right upper quadrant and meds ordered Reevaluate 05/22/19 16:22 Labs still not drawn no vomiting in the ED Bedside US performed by Dr. Ann and Dr. Schreiber without gallbladder pathology Sign out given to GGAE Dietrich. Dispo pending labs and blood work. I discussed the physical exam findings, ancillary test results and final diagnoses with the patient. I answered all of the patient's questions. The patient was satisfied with the care received and felt comfortable with the discharge plan and treatment plan. The Patient agrees to follow up with the primary care physician/specialist within 24-72 hours. Return precautions were given. <Nika Salazar - Last Filed: 05/22/19 16:22> - Medical Decision Making 05/22/19 17:11 I reviewed the case of the mid-level practitioner and was available for consultation while in the emergency department <Roberto Walters - Last Filed: 05/22/19 17:12> Discharge - Discharge Information Problems reviewed: Yes <Nika Salazar - Last Filed: 05/22/19 16:22> <Roberto Walters - Last Filed: 05/22/19 17:12> - Discharge Information Clinical Impression/Diagnosis: Nausea and vomiting Qualifiers: Vomiting type: unspecified Vomiting Intractability: non-intractable Qualified Code(s): R11.2 - Nausea with vomiting, unspecified
[2019-05-22] MEDS ORDERED: ONDANSETRON 4 MG/2 ML VIAL ONE (16:24)
[2019-05-22] MEDS ORDERED: ACETAMINOPHEN INJECTION 100 ML IVPB ONE (16:24)
--- NOTE | 2019-05-22 16:40 | PDOC ---
*Physical Exam - Vital Signs Last Vital Signs Temp Pulse Resp BP Pulse Ox 98.1 F 81 16 118/79 100 05/22/19 12:15 05/22/19 12:15 05/22/19 12:15 05/22/19 12:15 05/22/19 12:15 <Rehana Cabezas - Last Filed: 05/22/19 17:56> - Vital Signs Last Vital Signs Temp Pulse Resp BP Pulse Ox 98.1 F 81 16 118/79 100 05/22/19 12:15 05/22/19 12:15 05/22/19 12:15 05/22/19 12:15 05/22/19 12:15 <Roberto Walters - Last Filed: 05/23/19 12:10> ED Treatment Course - LABORATORY CBC & Chemistry Diagram: 05/22/19 16:50 05/22/19 16:50 <Rehana Cabezas - Last Filed: 05/22/19 17:56> - LABORATORY CBC & Chemistry Diagram: 05/22/19 16:50 05/22/19 16:50 - ADDITIONAL ORDERS Additional order review: 05/22/19 16:50 RBC 4.93 MCV 93.7 MCHC 34.4 RDW 12.7 MPV 7.6 Neutrophils % 42.9 D Lymphocytes % 47.6 H D Monocytes % 8.3 D Eosinophils % 0.7 D Basophils % 0.5 - Medications Given in the ED: ED Medications Discontinued Medications Generic Name Dose Route Start Last Admin Trade Name Rayq PRN Reason Stop Dose Admin Acetaminophen 1,000 mg 05/22/19 13:02 05/22/19 16:51 Ofirmev Injection - IVPB 05/22/19 13:03 1,000 mg ONCE ONE Administration Sodium Chloride 1,000 mls @ 1,000 mls/hr 05/22/19 13:02 05/22/19 16:50 Normal Saline - IV 05/22/19 14:01 1,000 mls/hr ASDIR STA Administration Ondansetron HCl 4 mg 05/22/19 13:02 05/22/19 16:51 Zofran Injection IVPUSH 05/22/19 13:03 4 mg ONCE ONE Administration <oRberto Walters - Last Filed: 05/23/19 12:10> Medical Decision Making - Medical Decision Making Patient signed out to me by GAGE Salazar Patient currently resting comfortably, in NAD Pendings labs, meds, reassessment Of note, patient endorses he has had this type of pain in the past Patient has had prior visits to ED for similar complaints, but has not followed up with specialist yet 05/22/19 16:39 Labs reviewed and unremarkable Minimal elevation in liver enzymes Patient feeling better after meds passed po challenge will refer to GI stable for dc 05/22/19 17:56 <Rehana Cabezas - Last Filed: 05/22/19 17:56> - Medical Decision Making 05/23/19 12:10 I reviewed the case of the mid-level practitioner and was available for consultation while in the emergency department <Roberto Walters - Last Filed: 05/23/19 12:10> Discharge - Discharge Information Problems reviewed: Yes - Admission No - Additional Discharge Information Prescription Drug Monitoring Program (I-STOP) results: I-STOP not reviewed <Rehana Cabezas - Last Filed: 05/22/19 17:56> <Roberto Walters - Last Filed: 05/23/19 12:10> - Discharge Information Clinical Impression/Diagnosis: Epigastric pain Condition: Stable Disposition: HOME - Follow up/Referral Referrals: Chivo Sanders DO [Staff Physician] - 2 Days - Patient Discharge Instructions Patient Printed Discharge Instructions: DI for Epigastric Pain Additional Instructions: Thank you for choosing [facility]. It was a pleasure taking care of you. You were referred to casting wheel operator helper for further evaluation of your symptoms Return to the Emergency Department if your symptoms worsen or persist or have other concerning symptoms. Kenzie por elegir el [facility]. Fue un placer cuidar de ti. Lo derivaron al gastroenterlogo para emma evaluacin adicional de chris sntomas. Regrese al departamento de emergencias si chris sntomas empeoran o persisten o si tiene otros sntomas preocupantes. Print Language: ROMANIAN
[2019-05-22 17:10] LABS: BASO % 0.5 % (0-2.0); EOS % 0.7 % (0-4.5); HEMATOCRIT 46.2 % (35.4-49); HEMOGLOBIN 15.9 GM/dL (11.7-16.9); LYMPH % 47.6 % (8-40); MCH 32.2 pg (25.7-33.7); MCHC 34.4 g/dl (32.0-35.9); MEAN CELL VOLUME 93.7 fl (80-96); MEAN PLT VOLUME 7.6 fl (7.5-11.1); MONO % 8.3 % (3.8-10.2); NEUT % 42.9 % (42.8-82.8); PLATELET COUNT 242 K/MM3 (134-434); RBC 4.93 M/mm3 (4.00-5.60); RDW 12.7 % (11.9-15.9); WHITE BLOOD COUNT 7.2 K/mm3 (4.0-10.0)
[2019-05-22 17:46] LABS: ALBUMIN 4.2 g/dl (3.4-5.0); BILIRUBIN,TOTAL 0.8 mg/dL (0.2-1); BLOOD UREA NITROGEN 16.8 mg/dL (7-18); CREATININE 0.8 mg/dL (0.55-1.3); POTASSIUM 3.8 mmol/L (3.5-5.1); TOT PROT 8.4 g/dl (6.4-8.2)
== END 2019-05-22 18:11 | disposition home or self-care (01) ==
LOC: JER 12:01
PROC: 3E033NZ Introduction of Analgesics, Hypnotics, Sedatives into Peripheral Vein, Percutaneous Approach (ICD-10-PCS; principal; 2019-05-22)
PROC: 3E033GC Introduction of Other Therapeutic Substance into Peripheral Vein, Percutaneous Approach (ICD-10-PCS; 2019-05-22)
DX: R11.2 Nausea with vomiting, unspecified (principal)
CPT/HCPCS: 36415; 76705-TC; 80053; 83690; 85025; 99284-25; J0131; J7030

== ENCOUNTER 2019-05-26 11:10 | Emergency (ER) | payer OTHER ==
[2019-05-26 11:18] VITALS: BMI 23.3
[2019-05-26] MEDS ORDERED: METOCLOPRAMIDE HCL INJECTION 10 MG/2 ML VIAL IVPUSH ONE (11:28)
[2019-05-26] MEDS ORDERED: FAMOTIDINE 20 MG/50 ML IVPB 20 MG/50 ML MG IVPB ONE ×2 (11:28→12:05)
[2019-05-26] MEDS ORDERED: MAG HYDROX/AL HYDROX/SIMETH 30 ML UNIT-DOSE CUP PO ONE (11:28)
[2019-05-26] MEDS ORDERED: LACTATED RINGERS SOLUTION 1000 ML INFUS.BAG IV ONE (11:28)
--- NOTE | 2019-05-26 11:33 | PDOC ---
History of Present Illness - General Chief Complaint: Pain, Acute Stated Complaint: STOMACH PAIN Time Seen by Provider: 05/26/19 11:21 History Source: Patient, Old Records Exam Limitations: No Limitations - History of Present Illness Initial Comments: HPI: 39 y/o male presenting to [facility] ER complaining of epigastric vs RUQ pain with associated nausea and vomiting x2 days. Started last evening after eating. Described as sharp and intermittently more intense. Nonmigratory. No radiation to RLQ. Made worse with PO intake. Denies fevers, chills, diarrhea, bloody stools, or urinary symptoms. Pt endorsed burning sensation in hands and feet. Diagnosed with diabetes. Nonadherent with metformin for >1 year. Pt has been evaluated at this department five times in the past twelve months for similar symptoms. Formal U/S was obtained in which was remarkable for mild fatty liver versus hepatocellular disease, as well as a GB polyp. Repeat POCUS RUQ was obtained 20 June 2019 and unremarkable for biliary pathology. Medical Hx: - DM, nonadherence to medical management Review of Systems: In addition to that documented in the HPI above, the additional ROS was obtained: Constitutional- Denies fevers or chills Head- Denies vision changes ENMT- Denies sore throat CV- Denies chest pain Resp- Denies SOB GI- Per HPI - Denies painful urination, hematuria, or frequency MSK- Denies recent trauma Skin- Denies new rashes Neuro- Denies new numbness or tingling or weakness Endocrine- Denies polyuria Heme- Denies bleeding or bruising Physical Examination: Vital signs and nursing notes reviewed. Constitutional- Well-developed, well-nourished adult male in no acute distress but obvious discomfort. Found semi-fowlers on hospital bed. Answered all questions appropriately and completely. Head- Normocephalic. No obvious external signs of trauma. Neck- Supple, trachea is midline. Cardiovascular / Chest- Regular rate and regular rhythm. No murmur, rubs, cl icks, or gallops. Peripheral pulses- radial pulses full. No pretibial edema. No anterior chest wall tenderness. Respiratory- Breathing unlabored. Equal chest rise and fall. Clear to auscultation bilaterally. No stridor, no wheezing, no rhonchi. Gastrointestinal- abdomen is tender in epigastric region > RUQ > LUQ with grimace but no rebound or guarding. Negative Corcoran's sign. No hepatosplen omegaly. No pulsatile masses. No overlying skin lesions or obvious signs of trauma. Neuro- Alert and oriented x4. Moving all four extremities spontaneously. No facial asymmetry. No slurred speech. Skin- Warm, dry, and intact. Psych- Affect- appropriate. Mood- normal. Speech was non-labored, non- pressured. MDM: 39 y/o male presenting with RUQ vs epigastric pain w/ N/V x2 days. H/o similar episodes. Nonadherent w/ diabetic medical management. Afebrile. Vitals unremarkable for hypotension or tachycardia. Physical exam as described above. Suspect likely diabetic gastroparesis given nonadherence, elevated serum glucose, glucosuria, and likely peripheral neuropathy. Low suspicion for perforation, hepatitis, pancreatitis, cholecystitis, or ACS. Reviewed laboratory data. Lipase not elevated. No leukocytosis. Noted elevated glucose and glucosuria. 26 May 2019 14:08 PM Pt reassessed. Reports pain has improved. Repeat abdominal exam revealed somewhat improvement in the discomfort in the RUQ vs epigastric region. Awaiting CTAP. CTAP obtained given possibility of hepatocellular disease noted on prior U/S. Fatty liver was noted. No other acute pathology. CTAP reviewed. Unremarkable for acute clinical findings. Pt reasessed again. Found resting comfortably. Reports his symptoms have continued to improve. Will prescribe short term refill of pts Metformin as previous dose as reported by his pharmacy. Also prescribed PRN Reglan for further gastroparesis symptoms. Scheduled pts follow up appointment with Dr. Rinaldi at [facility] in two weeks to establish primary care and further diabetic management. Discussed physical exam findings, laboratory results, and CT findings with pt. Answered all questions. Provided return precautions. pt expressed verbal understanding and agreement with plan to discharge home with outpatient follow up. Provided copies of todays results. Aneesh Glasgow M.D., PGY2 Emergency Medicine Resident Past History - Past Medical History Allergies/Adverse Reactions: Allergies Allergy/AdvReac Type Severity Reaction Status Date / Time No Known Allergies Allergy Verified 05/26/19 11:18 Home Medications: Ambulatory Orders Metoclopramide HCl [Reglan] 10 mg PO QID PRN #10 tablet 05/26/19 metFORMIN XR [Glucophage Xr -] 500 mg PO DAILY@0700 #14 tab.sr.24h 05/26/19 COPD: No CHF: No Diabetes: Yes GI Disorders: Yes HTN: No Hypercholesterolemia: No Other medical history: ALCOHOLIC - Surgical History Abdominal Surgery: No Appendectomy: No Cholecystectomy: No GI Surgery: No - Psycho Social/Smoking Cessation Hx Smoking History: Never smoked Have you smoked in the past 12 months: No Hx Alcohol Use: Yes (DAILY) Drug/Substance Use Hx: No Substance Use Type: Alcohol Hx Substance Use Treatment: No *Physical Exam - Vital Signs Last Vital Signs Temp Pulse Resp BP Pulse Ox 98.9 F 95 H 16 127/77 97 05/26/19 11:15 05/26/19 11:15 05/26/19 11:15 05/26/19 11:15 05/26/19 11:15 ED Treatment Course - LABORATORY CBC & Chemistry Diagram: 05/26/19 11:59 05/26/19 11:59 Discharge - Discharge Information Problems reviewed: Yes Clinical Impression/Diagnosis: Upper abdominal pain Diabetes type 2, uncontrolled Qualifiers: Glycemic state: with hyperglycemia Qualified Code(s): E11.65 - Type 2 diabetes mellitus with hyperglycemia Condition: Improved Disposition: HOME - Admission No - Additional Discharge Information Prescriptions: metFORMIN XR [Glucophage Xr -] 500 mg PO DAILY@0700 #14 tab.sr.24h Metoclopramide HCl [Reglan] 10 mg PO QID PRN #10 tablet PRN Reason: Upper abdominal pain, vomiting - Follow up/Referral Referrals: [facility] at [place] [Provider Group] - Patient Discharge Instructions Patient Printed Discharge Instructions: Type 2 Diabetes, DI for Gastroparesis, Metoclopramide, Metformin Additional Instructions: Usted fue visto hoy por dolor abdominal superior courtney los ltimos dos [place]. Dijiste que rafa dolor es similar a lo que has sentido en los ltimos meses. Menjivar tomografa computarizada y electrocardiograma fueron normales hoy. Chris anlisis de ronald y orina mostraron que menjivar diabetes no est controlada. Esta es probablemente la razn por la que siente dolor en las allegra y los pies, y por qu contina teniendo rafa dolor. Es probable que tenga algo llamado gastroparesia. Sugey el paquete adjunto sobre formas de lidiar con esta condicin. Debe reiniciar menjivar medicamento para la diabetes y consultar a un mdico de atencin primaria! La diabetes es muy grave! Envi emma receta de Metformina, que es el mismo medicamento que estaba tomando para menjivar diabetes. [place] envi emma receta para Reglan. Rafa medicamento ayudar con menjivar dolor de estmago. [place] ambos medicamentos khloe se indica en chris christina. No consuma mas de la dosis recomendada. Hice emma michael para usted el 2019 a las 10:[address] Orlando en [facility] en la clnica de atencin primaria de [place]. La oficina est muy cerca de rafa hospital. La direccin es: Medicina interna de [facility] en [address] [address] El nmero de telfono es [phone]. Asegrese de traer menjivar identificacin con foto, tarjeta de Medicaid / Medicare y cualquier otra tarjeta de seguro mdico (si tiene otra). Se adjunta emma copia de los resultados de hoy a rafa paquete. Llvelo a la michael para que menjivar mdico pueda revisarlos. Dirjase al departamento de emergencias ms cercano si menjivar afeccin empeora o siente que necesita emma evaluacin de emergencia adicional. You were seen today for upper abdominal pain for the past two days. You said this pain is similar to what you have felt over the past few months. Your CT scan and EKG were normal today. Your blood and urine tests showed your diabetes is not controlled. This is probably why you feel the pain in your hands and feet, and why you continue to have this pain. You likely have something called gastroparesis. Read the attached packet on ways to deal with this condition. You need to restart your diabetic medication and see a primary care doctor! Diabetes is very serious! I sent a prescription for Metformin, which is the same medication you were taking for your diabetes. I also sent a prescription for Reglan. This medication will help with your stomach pain. Take both medications as directed on their boxes. Do not take more than the recommended dose. I have made an appointment for you on Saturday, June 08, 2019 at 10:00AM with Dr. Orlando at [facility] at [facility]. The office is very close to this [facility]. The address is: [facility] at [address] [place] [address] The telephone number is [phone]. Be sure to bring your photo ID, Medicaid/ Medicare card, and any other medical insurance cards (if you have another one). A copy of todays results are attached to this packet. Take it to the appointment so your doctor can review them. Go to the nearest emergency department if your condition worsens or you feel like you need additional emergency evaluation. Print Language: BENGALI - Post Discharge Activity Work/Back to School Note: Back to Work
[2019-05-26 12:05] LABS: EPI CELLS 2.4 /HPF (0-5/HPF); HYALINE CASTS 10 /lpf (0-8); PH,URINE 6.5 (5.0-8.0); URINE APPEARANCE TURBID; URINE BACTERIA 0.7 /hpf (NEGATIVE); URINE BILIRUBIN 1+ (NEGATIVE); URINE COLOR DK YELLOW; URINE GLUCOSE (UA) 1+ (NEGATIVE); URINE KETONE 1+ (NEGATIVE); URINE LEUK ESTERASE NEGATIVE (NEGATIVE); URINE NITRITE NEGATIVE (NEGATIVE); URINE PROTEIN 1+ (NEGATIVE); URINE RBC 1 /hpf (0-4); URINE WBC 3 /hpf (0-5)
[2019-05-26] MEDS ORDERED: METOCLOPRAMIDE HCL INJECTION 10 MG/2 ML VIAL ONE (12:05)
[2019-05-26] MEDS ORDERED: MAG HYDROX/AL HYDROX/SIMETH 30 ML UNIT-DOSE CUP ONE (12:05)
[2019-05-26 12:10] LABS: BASO % 0.4 % (0-2.0); EOS % 0.1 % (0-4.5); HEMATOCRIT 43.8 % (35.4-49); HEMOGLOBIN 15.3 GM/dL (11.7-16.9); LYMPH % 23.3 % (8-40); MCH 32.3 pg (25.7-33.7); MCHC 34.9 g/dl (32.0-35.9); MEAN CELL VOLUME 92.5 fl (80-96); MEAN PLT VOLUME 7.4 fl (7.5-11.1); MONO % 4.3 % (3.8-10.2); NEUT % 71.9 % (42.8-82.8); PLATELET COUNT 248 K/MM3 (134-434); RBC 4.74 M/mm3 (4.00-5.60); RDW 12.5 % (11.9-15.9); WHITE BLOOD COUNT 6.3 K/mm3 (4.0-10.0)
[2019-05-26 12:29] LABS: COCAINE, UR NEGATIVE ng/ml (CUTOFF=300); METHADONE, UR NEGATIVE ng/ml (CUTOFF=300); OPIATES, URI NEGATIVE ng/ml (CUTOFF=300); PHENCYCLIDINE,URINE NEGATIVE ng/ml (CUTOFF=25); URINE AMPHETAMINES NEGATIVE ng/ml (CUTOFF=500); URINE BARBITURATES NEGATIVE ng/ml (CUTOFF=200); URINE BENZODIAZEPINES NEGATIVE ng/ml (CUTOFF=200)
[2019-05-26 12:40] LABS: ALBUMIN 4.1 g/dl (3.4-5.0); ALK PHOS 85 U/L (45-117); ANION GAP 8 MMOL/L (8-16); BILIRUBIN,TOTAL 0.8 mg/dL (0.2-1); BLOOD UREA NITROGEN 17.1 mg/dL (7-18); CALCIUM 9.4 mg/dL (8.5-10.1); CHLORIDE 98 mmol/L (98-107); CO2 28 mmol/L (21-32); CREATININE 0.8 mg/dL (0.55-1.3); GLUCOSE,RANDOM 208 mg/dL (74-106); LIPASE 261 U/L (73-393); POTASSIUM 3.7 mmol/L (3.5-5.1); SGOT/AST 23 U/L (15-37); SGPT/ALT 58 U/L (13-61); SODIUM 134 mmol/L (136-145); TOT PROT 8.2 g/dl (6.4-8.2)
--- NOTE | 2019-05-26 12:52 | PDOC ---
Attending Attestation - Resident Resident Name: GlasgowAneesh - ED Attending Attestation I have performed the following: I have examined & evaluated the patient, The case was reviewed & discussed with the resident, I agree w/resident's findings & plan - HPI HPI: 05/26/19 12:52 39 YOM with h/o DM, metformin presenting with epigastric abdominal pain, associated nausea and vomiting x2 days. this abdominal pain has been present x "long time." Started last evening after eating. Described as sharp and intermittently more intense. Nonmigratory. No radiation to RLQ. Made worse with PO intake. Denies fevers, chills, diarrhea, bloody stools, or urinary symptoms. h/o DM2 and Nonadherent with metformin for >1 year. Pt has been evaluated at this department five times in the past twelve months for similar symptoms. Formal U/S was obtained in which was remarkable for mild fatty liver versus hepatocellular disease, as well as a GB polyp. Repeat POCUS RUQ was obtained 20 June 2019 and unremarkable for biliary pathology. 05/26/19 13:07 - Physicial Exam PE: 05/26/19 12:49 Agree with the resident's HPI and PE as documented in the electronic medical record. NAD, well appearing, EOMI, PERRL, nl conjunctiva, anicteric; neck supple. lungs clear, RRR, abdomen soft +epigastric TTP, no lin's or mcburney's sign. No rebound, no guarding. Back nontender. no CVAT. DERAS x4, no focal neuro deficits. No peripheral edema. normal color for ethnicity, WWP. 05/26/19 13:08 - Medical Decision Making 05/26/19 12:49 Vital Signs Temp Pulse Resp BP Pulse Ox 98.9 F 95 H 16 127/77 97 05/26/19 11:15 05/26/19 11:15 05/26/19 11:15 05/26/19 11:15 05/26/19 11:15 DDx abdominal pain: Renal colic, biliary colic, metabolic/electrolyte derangements. GERD, PUD, esophageal spasm, pancreatitis, hepatitis, constipation , colitis, gastroenteritis, cholecystitis, UTI, pyelonephritis, ileus, SBO, medication side effect, hernia, appendicitis, diverticulitis, msk strain, mesenteric adenitis, psoas abscess. no lower abdominal pain to suggest appy or diverticulitis. labs and lytes, LFTs/lipase wnl UA neg for infection, +bilirubin/urobil given persistent sx, last sono abdomen from 10/2018 with GB polyp, fatty liver vs hepatocellular disease 05/22/19 -had GB sono done by me POCUS, with no acute pathology noted CT a/p today to eval for intra abdominal infection/inflammation given persistent sx. The patient appears comfortable and states that pain is improved. Given medications GI cocktail, reglan with clinical improvement. ECG is NSR with some PACs, trop sent to eval for atypical cp presentation given DM2 history. trop is negative. 05/26/19 18:09 CT negative for acute pathology, diffuse fatty liver, no gallbladder polyp is noted on current exam compared to his prior ultrasound. Otherwise no acute pathology or intra-abdominal process. likely gastritis vs dm related gastroparesis vs GERD/PUD. supportive care hydration and prn reglan for n/v, may help with the dm related sx. low dose metformin rx sent for x 2 week supply. coordinated care for PMD, Dr Herndon. pt previously on metformin, so appropriate, with established history of dm and should be compliant with medications avoid food triggers. Tolerating oral intake. Vital signs reviewed and are normal. On repeat physical exam, the abdomen is soft and nontender, no suggestive findings for acute abdominal process at this time. All diagnostics tests reviewed and discussed with the patient. Heart Score/ECG Review #1 ECG reviewed & interpreted by me at: 13:10 General ECG Interpretation: Sinus Rhythm, Normal Rate, Normal Intervals Compared to previous ECG there are: Previous ECG unavail 05/26/19 13:14 EKG normal sinus rhythm 83 bpm, intermittent PACs, no interval abnormalities, narrow QRS, ST and T wave segments and morphology normal. Nonspecific T wave abnormalities
[2019-05-26 18:13] VITALS: BP 125/68; PULSE 76; TEMP 98
--- NOTE | 2019-05-27 08:45 | EKG ---
Test Reason : Blood Pressure : / mmHG Vent. Rate : 083 BPM Atrial Rate : 083 BPM P-R Int : 146 ms QRS Dur : 076 ms QT Int : 384 ms P-R-T Axes : 069 043 054 degrees QTc Int : 451 ms SINUS RHYTHM WITH PREMATURE ATRIAL COMPLEXES OTHERWISE NORMAL ECG NO PREVIOUS ECGS AVAILABLE Confirmed by MD MARY, NETO ([id number]) on 05/27/2019 8:45:19 AM Referred By: Confirmed By:NETO HERNANDEZ MD
== END 2019-05-26 18:13 | disposition home or self-care (01) ==
LOC: JER 11:10
PROC: 3E033GC Introduction of Other Therapeutic Substance into Peripheral Vein, Percutaneous Approach (ICD-10-PCS; principal; 2019-05-26)
PROC: 3E033GC Introduction of Other Therapeutic Substance into Peripheral Vein, Percutaneous Approach (ICD-10-PCS; 2019-05-26)
DX: R10.10 Upper abdominal pain, unspecified (principal); E11.65 Type 2 diabetes mellitus with hyperglycemia; Z79.84 Long term (current) use of oral hypoglycemic drugs; Z91.14 Patient's other noncompliance with medication regimen; F10.10 Alcohol abuse, uncomplicated
CPT/HCPCS: 36415; 74177-TC; 80053; 80307; 81003; 83605; 83690; 84484; 85025; 87086; 93005; 93010; 96365; 96375; 99285-25

== ENCOUNTER 2022-10-18 21:45 | Emergency (ER) | payer OTHER ==
[2022-10-18 22:00] VITALS: BP 127/81; PULSE 100; RESP 16; TEMP 98.5; BMI 27.4
[2022-10-18] MEDS ORDERED: ACETAMINOPHEN 500 MG TABLET (FP) PO ONE (22:27)
[2022-10-18] MEDS ORDERED: ACETAMINOPHEN 500 MG TABLET (FP) ONE (22:50)
== END 2022-10-19 00:18 | disposition home or self-care (01) ==
LOC: JER 21:45
DX: G44.319 Acute post-traumatic headache, not intractable (principal); F10.229 Alcohol dependence with intoxication, unspecified; H53.8 Other visual disturbances; W18.2XXA Fall in (into) shower or empty bathtub, initial encounter; Y93.89 Activity, other specified; Y92.002 Bathroom of unspecified non-institutional (private) residence as the place of occurrence of the external cause
CPT/HCPCS: 70450-TC; 72125-TC; 82962; 93005; 93010; 99284-25